=== PATIENT | male | born 1975 | race Two or more races ===

== ENCOUNTER 2016-10-04 10:13 | Emergency (ER) | payer OTHER ==
[~2016-10-04] VITALS: Ht 167.6 cm; Wt 132.0 kg
[2016-10-04 10:28] VITALS: BP 145/88
[2016-10-04] MEDS ORDERED: LIDOCAINE 1% HCL (LOCAL ANESTH.) INJ 20ML MDV IN ONE (12:30)
[2016-10-04] MEDS ORDERED: NEOMYCIN-POLYM-HC 1% OTIC(EAR) SOLN 10ML EACH EAR ONE (13:00)
[2016-10-04] MEDS ORDERED: TETANUS-DIPTH-ACEL PERTUSSIS 0.5ML SYRG IM ONE (13:00)
[2016-10-04] MEDS ORDERED: NEOMYCIN-BACITRACIN-POLYM UNITDOSE PKG TOP OINT TOP ONE (13:00)
== END 2016-10-04 13:36 | disposition home or self-care (01) ==
LOC: ER 10:13
DX: S61.211A Laceration without foreign body of left index finger without damage to nail, initial encounter (principal); S61.213A Laceration without foreign body of left middle finger without damage to nail, initial encounter; S61.215A Laceration without foreign body of left ring finger without damage to nail, initial encounter; W45.8XXA Other foreign body or object entering through skin, initial encounter; Y93.89 Activity, other specified; Y99.8 Other external cause status; Y92.89 Other specified places as the place of occurrence of the external cause
CPT/HCPCS: 12004; 73130; 90471; 90715; 99284; J2001

== ENCOUNTER 2016-10-06 07:09 | Emergency (ER) | payer OTHER ==
[~2016-10-06] VITALS: Ht 165.1 cm; Wt 132.0 kg
[2016-10-06 07:30] VITALS: BP 143/82
== END 2016-10-06 09:04 | disposition home or self-care (01) ==
LOC: ER 07:12
DX: S61.213D Laceration without foreign body of left middle finger without damage to nail, subsequent encounter (principal); S61.211D Laceration without foreign body of left index finger without damage to nail, subsequent encounter; Z48.01 Encounter for change or removal of surgical wound dressing